=== PATIENT | female | born 1980 | race Caucasian/White ===

== ENCOUNTER 2022-02-28 11:15 | Observation (INO) | payer OTHER, SELFPAY ==
[2022-02-28] VITALS (15 sets, daily range): BP systolic 134–190; BP diastolic 86–115; PULSE 77–124; RESP 16–22; TEMP 36.8–37.3; O2SAT 95–100; BMI 30.5
--- NOTE | 2022-02-28 11:43 | CTR_ITS ---
PROCEDURE INFORMATION: Exam: CTA Chest With Contrast Exam date and time: 02/28/2022 1:15 PM Age: 41 years old Clinical indication: Other: Chest pain; Additional info: Evaluated for vascular pathology-pain to left shoulder TECHNIQUE: Imaging protocol: Computed tomographic angiography of the chest with contrast. 3D rendering (Not supervised by radiologist): MIP and/or 3D reconstructed images were created and reviewed. COMPARISON: CR Chest 1 [place] [id number] 04/28/2018 2:25 AM FINDINGS: Pulmonary arteries: Main pulmonary artery normal in caliber. No evidence of pulmonary embolism to the subsegmental level. Aorta: Unremarkable. No aortic aneurysm. No aortic dissection. Lungs: The lungs are well expanded. No focal consolidation. Airways normal in caliber and patent. Pleural spaces: Unremarkable. No pneumothorax. No pleural effusion. Heart: No cardiomegaly. No coronary artery calcifications. No pericardial effusion. Lymph nodes: Unremarkable. No enlarged lymph nodes. Bones/joints: There is marked edema surrounding the thoracic esophagus from the thoracic inlet to the hiatus. There is apparent circumferential esophageal wall thickening the is difficult to evaluate as the esophagus is relatively collapsed. No discrete fluid collection. No air beyond the esophageal lumen. No acute or aggressive osseous lesion. Soft tissues: Unremarkable. PROCEDURE INFORMATION: Exam: CTA Abdomen and Pelvis Without And With Contrast Exam date and time: 02/28/2022 1:15 PM Age: 41 years old Clinical indication: Other: Chest pain; Additional info: Evaluated for vascular pathology-pain to left shoulder TECHNIQUE: Imaging protocol: Computed tomographic angiography of the abdomen and pelvis without and with contrast. 3D rendering (Not supervised by radiologist): MIP and/or 3D reconstructed images were created by the technologist. Radiation optimization: All CT scans at this facility use at least one of these dose optimization techniques: automated exposure control; mA and/or kV adjustment per patient size (includes targeted exams where dose is matched to clinical indication); or iterative reconstruction. Contrast material: OMNI 350; Contrast volume: 95 ml; Contrast route: INTRAVENOUS (IV); COMPARISON: No relevant prior studies available. RADIATION DOSE METRICS: Total DLP (mGy-cm): 1964.17 FINDINGS: Aorta: No aortic aneurysm. No aortic dissection. Celiac trunk and mesenteric arteries: No occlusion or significant stenosis. Renal arteries: No occlusion or significant stenosis. Incidental note of accessory right lower pole renal artery. Right iliac arteries: No occlusion or significant stenosis. Left iliac arteries: No occlusion or significant stenosis. Liver: No mass. Gallbladder and bile ducts: Bile ducts mildly dilated, likely due to reservoir effect in the setting of cholecystectomy. Pancreas: Unremarkable. No mass. No ductal dilation. Spleen: Unremarkable. No splenomegaly. Adrenal glands: Unremarkable. No mass. 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 No hydronephrosis or visualized stones. No renal mass. Stomach and bowel: Unremarkable. No obstruction. No mucosal thickening. Appendix: No evidence of appendicitis. Intraperitoneal space: Unremarkable. No free air. No significant fluid collection. Lymph nodes: Unremarkable. No enlarged lymph nodes. Urinary bladder: Well distended and normal in appearance. Reproductive: Hysterectomy. Incidental 15 mm involuting left ovarian follicle. Bones/joints: No acute fracture. No dislocation. Lower lumbar degenerative changes. Soft tissues: Unremarkable. CT/CT angio chest abdomen pelvis IMPRESSION: 1. No evidence of pulmonary embolism. 2. Extensive edema surrounding the esophagus, with suspected mild circumferential wall thickening, correlate for esophagitis. Limited evaluation without opacification of the lumen. No focal fluid collection is identified. IMPRESSION: 1. No acute findings within the abdomen or pelvis. 2. No significant stenosis or occlusion.
--- NOTE | 2022-02-28 11:44 | ECG_ITS ---
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 Measurements Intervals [place] Rate: 89 P: 54 UT: 130 QRS: 42 QRSD: 85 T: 71 QT: 364 QTc: 445 Interpretive Statements SINUS RHYTHM Compared to ECG 04/28/2018 02:07:23 No significant changes Electronically Signed On 03-01-2022 19:30:36 CDT by Too Loomis M.D. [id number]
--- NOTE | 2022-02-28 11:47 | W.ED.CHESTPA ---
HPI - Chest Pain General: Chief Complaint: Chest Pain Stated Complaint: Chest Pains Time Seen by Provider: 02/28/22 11:30 Source: patient and other (Friend) Mode of arrival: ambulatory Limitations: no limitations History of Present Illness: This patient presents by private vehicle to our emergency department because of epigastric and lower chest pain. She states that she had a normal day yesterday felt some mild nausea last evening. She states she thinks she slept well but woke with episodes of sharp pain in her lower chest epigastric region which she states seemed to radiate to her left shoulder. She states the pain was episodic and sharp and then would ease off a bit. She states it was not worsened by eating activity etc. She states that she took her usual H2 angel as well as multiple Rolaids as well as a second H2 angel throughout the morning with no relief in her symptoms. Pain is now been present approximately 3-1/2-4 hours. She states that she has urinated normally, had normal bowel movement. She states she felt like throwing up might help her but she has not had any emesis. She does have a history of acid reflux disease but is never experienced any symptoms like these. She has had a prior cholecystectomy as well as multiple orthopedics surgeries for a trauma. These are very remote circa 2007. She has a history of factor V Leyden deficiency discovered several years ago. Did have 1 DVT several years ago. She is not currently taking any DOAC's or other anticoagulants. She has not had any other constitutional symptoms such as cough sore throat fever etc. She states she has no personal history of dyspnea with exertion or chest pain. She does have hypertension and takes lisinopril. She does not use tobacco and rarely drinks alcohol. She has had no blood or melanotic stools. She does have a family history of cardiovascular disease and a younger brother. Her father is living. complaint: chest pain Timing of current episode: episodic and increasing Onset: during rest Pain location: substernal and epigastric Pain radiation: left scapula Severity: moderate Quality: sharp Relieving factors: nothing Exacerbating factors: nothing Associated symptoms: Reports no associated symptoms; Deny dyspnea, fever(s), palpitations, syncope or vomiting Risk Factors: Coronary artery disease risk factors: family history of CAD before age 50 Pulmonary embolism risk factors: clotting disorder Related Data: On Oral Contraceptives: No Review of Systems Const: Denies: fever(s) or chills Eyes: Denies: change in vision ENMT: Denies: throat pain, odynophagia or hoarseness Card: Denies: palpitations, syncope, pre-syncope or dyspnea on exertion Resp: Denies: dyspnea, productive cough, non-productive cough or wheezing GI: Reports: heartburn; Denies: vomiting, hematemesis, dysphagia, change in bowel habits or hematochezia : Denies: flank pain, difficulty voiding, dysuria or urinary frequency Musc: Denies: neck pain, extremity pain or extremity swelling Skin/Breast: Denies: rash or pruritus Neuro: Denies: headache(s), numbness in extremities, weakness in extremities, dizziness, vertigo or Slurred speech present Psych: Denies: anxiety or depression Endo: Denies: polyuria or polydipsia Carlos Alberto/Lymph: Denies: easy bruising or easy bleeding Physical Exam Narrative: EXAM NARRATIVE: Patient is alert and appears to be in some distress intermittently. She is able to answer questions in a goal-directed fashion when she is not having discomfort. Const: COMMON NORMALS: average body habitus and patient oriented x3 NUTRITIONAL APPEARANCE: overweight HENMT: COMMON NORMALS: normocephalic, atraumatic, Normal external nose present and moist oral mucous membranes HEAD & SCALP: normocephalic and atraumatic NOSE: Normal external nose present Eye: COMMON NORMALS: Equal, round and reactive pupils present, EOMs intact bilaterally and no scleral icterus PUPIL: Yes Equal, round and reactive pupils present Neck/C-Spine: COMMON NORMALS: full ROM, no lymphadenopathy, no meningeal signs, no JVD and No carotid bruits Chest: COMMONS NORMALS: normal inspection of the chest and normal palpation of entire chest wall Resp: COMMON NORMALS: normal respiratory effort, No retractions, No use of accessory muscles and clear to auscultation bilaterally AUSCULTATION: clear to auscultation bilaterally Cardio: COMMON NORMALS: no JVD, regular rate, regular rhythm, No murmurs present (Cardio) and Peripheral pulses 2+ throughout JUGULAR VENOUS DISTENTION: no JVD RATE: regular rate RHYTHM: regular rhythm PERIPHERAL PULSES: Peripheral pulses 2+ throughout GI: COMMON NORMALS: Normal to inspection, nondistended, normoactive bowel sounds present, Soft to palpation, non-tender, No hepatosplenomegaly present, no masses and no bruits PALPATION: Yes Soft to palpation and Yes No hepatosplenomegaly present : COMMON NORMALS: Yes no CVA tenderness BLADDER/KIDNEY EXAM: Yes no CVA tenderness Back/Pelvis: COMMON NORMALS: no CVA tenderness, thoracic and lumbar spine normal to inspection, no thoracic nor lumbar tenderness and thoraco-lumbar ROM normal Extremity: COMMON NORMALS: normal to inspection, full ROM, capillary refill normal, no joint enlargement, no calf tenderness and no pedal edema Neuro: COMMON NORMALS: patient oriented x3, moves all extremities, no focal motor deficits and no sensory deficits noted MENINGEAL SIGNS: Yes no meningeal signs CRANIAL NERVES: Yes CN normal except as noted SPEECH: speech normal Psych: COMMON NORMALS: mental status grossly normal Skin: COMMON NORMALS: no rashes or lesions noted and turgor normal GENERAL SKIN EXAM: no rashes or lesions noted and turgor normal Course Reevaluation(s): Reevaluation #1: CT scan is reassuring without any evidence of pulmonary embolus, aortic vessel disease or other concerning vascular issues. She does have a slight elevation in his D-dimer but I suspect this is probably related to her factor V Leyden deficiency given her normal CTA. She also has esophageal edema consistent with esophagitis. We will proceed with symptomatic treatment and follow response. Time: 15:24 Reevaluation #2: We have had limited success with using GI cocktail, nitroglycerin sublingual etc. We will go ahead and proceed with a nicardipine drip. She continues to have discomfort as well as elevation in blood pressure. [place] no evidence at this time of ACS, great vessel disease to include dissection, aneurysm etc. Time: 18:35 Consultations: Consultation #1: I discussed with general surgeon who provides endoscopies support at this facility. Reviewed her current findings and history and he agrees that reasonable choice would be calcium channel angel as well as pain control and he will consult for endoscopy as indicated. Time: 18:33 Consultation #2: Spoke with the hospitalist on-call Dr. Edwards who agreed to admit the patient. Time: 18:41 Vital Signs: Vital signs: Vital Signs Pulse Rate 77 02/28/22 16:13 Respiratory Rate 16 02/28/22 16:58 Blood Pressure 190/112 02/28/22 16:13 Pulse Oximetry 100 02/28/22 16:58 MDM - Chest Pain Medical Decision Making Patient with a history of esophageal reflux with new and unusual symptoms that began early this morning and have continued and eventually she made her way to the emergency department. Because of her symptomatology and concern about possible great vessel disease a extensive work-up was engaged. Her CTA of her chest abdomen pelvis were unremarkable for dissection or other concerning findings or other intra-abdominal pathology. Multiple regimens were attempted to control her symptoms but minimal if any positive affect. 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 Historically calcium channel blockers have been effective in controlling those symptoms and combined with her hypertension we will go ahead and start her on a nicardipine drip. She will be admitted to the ICU and evaluated and further care provided by the hospitalist as well as a general surgeon for endoscopy support. This was all reviewed with the patient and she was agreement with the plan. Lab Data I reviewed the patient's lab results. : 02/28/22 11:30 02/28/22 11:30 Radiology Impressions Chest/Abdomen/Pelvis CTA 02/28/22 11:43 IMPRESSION: 1. No evidence of pulmonary embolism. 2. Extensive edema surrounding the esophagus, with suspected mild circumferential wall thickening, correlate for esophagitis. Limited evaluation without opacification of the lumen. No focal fluid collection is identified. IMPRESSION: 1. No acute findings within the abdomen or pelvis. 2. No significant stenosis or occlusion. Laboratory Results WBC 11.9 10^3/uL (4.0-10.0) H 02/28/22 11:30 RBC 4.45 10^6/uL (4.1-5.3) 02/28/22 11:30 Hgb 13.3 g/dL (11.5-15.3) 02/28/22 11:30 Hct 40.1 % (37.0-47.0) 02/28/22 11:30 MCV 90.1 fl (81-99) 02/28/22 11:30 MCH 29.9 pg (28.0-34.0) 02/28/22 11:30 MCHC 33.2 g/dL (30.0-36.0) 02/28/22 11:30 RDW 12.9 % (12.1-15.1) 02/28/22 11:30 Plt Count 298 10^3/cmm (130-400) 02/28/22 11:30 MPV 10.1 fL (7.4-10.4) 02/28/22 11:30 Neut % (Auto) 72.7 % 02/28/22 11:30 Lymph % (Auto) 19.0 % 02/28/22 11:30 Kimball % (Auto) 6.9 % 02/28/22 11:30 Eos % (Auto) 0.8 % 02/28/22 11:30 Baso % (Auto) 0.3 % 02/28/22 11:30 Neut # (Auto) 8.66 10^3/uL (1.8-7.7) H 02/28/22 11:30 Lymph # (Auto) 2.3 10^3/uL (0.8-4.8) 02/28/22 11:30 Kimball # (Auto) 0.8 10^3/uL (0.2-0.9) 02/28/22 11:30 Eos # (Auto) 0.1 10^3/uL (0.0-0.8) 02/28/22 11:30 Baso # (Auto) 0.0 10^3/uL (0.0-0.1) 02/28/22 11:30 Nucleated RBC % (auto) 0 % 02/28/22 11:30 Nucleated RBCs # 0.0 /100WBC 02/28/22 11:30 D-Dimer 1.30 ug/mIFEU (0-0.59) H 02/28/22 12:20 Sodium 135 mmol/L (136-145) L 02/28/22 11:30 Potassium 4.2 mmol/L (3.5-5.1) 02/28/22 11:30 Chloride 102 mmol/L (98-107) 02/28/22 11:30 Carbon Dioxide 24 mmol/L (22-29) 02/28/22 11:30 Anion Gap 13.2 (5-19) 02/28/22 11:30 BUN 13 mg/dL (6-20) 02/28/22 11:30 Creatinine 0.6 mg/dL (0.5-0.9) 02/28/22 11:30 GFR Calculation 109.6 mL/min (90-130) 02/28/22 11:30 Glucose 101 mg/dL (65-115) 02/28/22 11:30 Calculated Osmolality 280 mOsm/kg (285-295) L 02/28/22 11:30 Calcium 8.5 mg/dL (8.5-10.5) 02/28/22 11:30 Total Bilirubin 0.2 mg/dL (0.15-1.2) 02/28/22 11:30 AST 16 U/L (0-32) 02/28/22 11:30 ALT 15 U/L (0-33) 02/28/22 11:30 Alkaline Phosphatase 63 IU/L (35-105) 02/28/22 11:30 Troponin T Baseline 6 ng/L (0-10) 02/28/22 11:30 Troponin T 120 Minute 6.00 ng/L (0-10) 02/28/22 13:44 Delta Troponin T 0 ABS# (0-10) 02/28/22 13:44 Troponin T Hi Sens 6Hr 6.00 ng/L (0-10) 02/28/22 17:50 Troponin T Hi Sens 6Hr Delta Not Reportable 02/28/22 17:50 Total Protein 7.0 g/dL (6.6-8.7) 02/28/22 11:30 Albumin 4.0 g/dL (3.5-5.2) 02/28/22 11:30 Globulin 3.0 g/dL (1.3-4.6) 02/28/22 11:30 Lipase 24 U/L (13-60) 02/28/22 11:30 EKG Data EKG 1: I personally reviewed and interpreted this EKG as follows: EKG interpretation time: 11:29 Interpretation: EKG reveals normal sinus rhythm with a ventricular rate of 92 bpm. MD interval is normal, QRS duration is normal, QTc intervals normal. [place] is within normal range. No acute ST-T wave changes noted. Unremarkable EKG. Discharge Plan Discharge Patient Disposition: Admitted As Inpatient Clinical Impression: Nutcracker esophagus Condition: Stable Coding Level of Care Code ED Law Office Receptionist for Chg Fwd Exam Comprehensive
[2022-02-28 11:55] LABS: Basophils % 0.3 %; Eosinophils # 0.1 10^3/uL (0.0-0.8); Eosinophils % 0.8 %; Hematocrit 40.1 % (37.0-47.0); Hemoglobin 13.3 g/dL (11.5-15.3); Lymphocytes # 2.3 10^3/uL (0.8-4.8); Mean Corpuscular HGB Conc 33.2 g/dL (30.0-36.0); Mean Corpuscular Hemoglobin 29.9 pg (28.0-34.0); Mean Corpuscular Volume 90.1 fl (81-99); Mean Platelet Volume 10.1 fL (7.4-10.4); Monocytes # 0.8 10^3/uL (0.2-0.9); Monocytes % 6.9 %; Neutrophils # 8.66 10^3/uL (1.8-7.7); Neutrophils % 72.7 %; Nucleated Red Blood Cells % 0 %; Platelet Count 298 10^3/cmm (130-400); Red Blood Count 4.45 10^6/uL (4.1-5.3); Red Cell Distribution Width 12.9 % (12.1-15.1); White Blood Count 11.9 10^3/uL (4.0-10.0)
[2022-02-28 12:10] LABS: Alanine Aminotransferase 15 U/L (0-33); Alkaline Phosphatase 63 IU/L (35-105); Anion Gap 13.2 (5-19); Aspartate Amino Transferase 16 U/L (0-32); Blood Urea Nitrogen 13 mg/dL (6-20); Calcium 8.5 mg/dL (8.5-10.5); Carbon Dioxide 24 mmol/L (22-29); Chloride 102 mmol/L (98-107); Glomerular Filtration Rate 109.6 mL/min (90-130); Glucose 101 mg/dL (65-115); Lipase 24 U/L (13-60); Osmolality Calculated 280 mOsm/kg (285-295); Potassium 4.2 mmol/L (3.5-5.1); Sodium 135 mmol/L (136-145); Total Bilirubin 0.2 mg/dL (0.15-1.2)
[2022-02-28 12:11] LABS: Troponin(5th) Baseline 6 ng/L (0-10)
[2022-02-28] MEDS: HYDROmorphone 1 mg/mL INJ 1 mL IVP ×3 (12:14→16:58)
[2022-02-28] MEDS: ondansetron 2 mg/ML SDV 2 mL 4 MG IVP ×3 (12:14→21:21)
[2022-02-28] MEDS: iohexol 350 mg/mL 100 mL Btl IV (13:15)
[2022-02-28 14:37] LABS: Troponin 5 2HR Delta 0 ABS# (0-10)
[2022-02-28] MEDS: lidocaine 2% viscous 15 ML, aluminum-mag hydrox-simethicon 30 ML, sucralfate oral liq 1 GM PO (15:26)
[2022-02-28] MEDS: nitroglycerin 0.4 mg sublingual Tablet SUBLINGUAL ×3 (16:09→16:59)
--- NOTE | 2022-02-28 17:44 | ECG_ITS ---
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 Measurements Intervals [place] Rate: 92 P: 17 MN: 140 QRS: 19 QRSD: 81 T: 49 QT: 344 QTc: 426 Interpretive Statements SINUS RHYTHM Compared to ECG 04/28/2018 02:07:23 No significant changes Electronically Signed On 03-01-2022 19:34:58 CDT by Too Loomis M.D. [id number]
[2022-02-28] MEDS: nicardipine 20 MG/200 ML PREMIX 50 MG IV (18:51)
--- NOTE | 2022-02-28 19:04 | PC.NURSE ---
Assumed pt care from Agustín MCCOY
--- NOTE | 2022-02-28 19:14 | PM.HP ---
Providers/Chief Complaint Primary Care Provider: Melissa Servin APN Chief Complaint: Chest Pains History of Present Illness Annmarie Hernandez is a 41 year old female without significant past medical history other than hypothyroidism and hypertension presented today with chief complaint of heartburn and diffuse esophageal asthma pains. Patient is stating that she has never been diagnosed with sclerodactyly or nutcracker esophagus however she does experience GERD intermittently. Patient is stating that she had EGD when she was 14 years old which showed GERD related changes. She is camping these days, last night she start experiencing some discomfort in her mid epigastric region and this morning when she had a hamburger her symptoms started getting worse, she describes her symptoms as extensive spastic pains in mid epigastric region, she would not call it chest pain however she is endorsing pain in her left shoulder. She is denying radiation of pain in between shoulder blades. She has experienced multiple episodes of emesis. No fever or diarrhea. She is denying discoloration of her hands in cold, skin rash, telangiectasias. Patient is stating that she is a double swallower, whenever she eats solid or liquid she has to swallow twice to make sure she does not choke. She has been noticing some choking on liquid diet and regurgitation of food as well. In the ER she was diagnosed with hypertensive urgency she was started on Cardene drip at the time of evaluation blood pressure was 137/72 mmHg, I will discontinue Cardene drip and put her on Nitropaste admitted to [facility] Dr. Schmidt notified Review of Systems Const: Denies: fever(s) Eyes: Denies: change in vision ENMT: Reports: throat pain and odynophagia Card: Denies: chest pain Resp: Denies: dyspnea GI: Reports: abdominal pain, nausea, vomiting and heartburn; Denies: early satiety : Denies: flank pain Musc: Denies: neck pain Skin/Breast: Denies: rash Neuro: Denies: headache(s) Psych: Denies: anxiety Endo: Denies: polyuria Carlos Alberto/Lymph: Denies: easy bruising All/Imm: Denies: urticaria Medications/Allergies Home Medications Medication Instructions Recorded Confirmed Last Taken Type levothyroxine 175 mcg tablet 175 mcg PO DAILY 02/28/22 02/28/22 02/28/22 History (Euthyrox) lisinopril 10 mg tablet 10 mg PO BID 02/28/22 02/28/22 02/28/22 History Allergies Allergy/AdvReac Type Severity Reaction Status Date / Time No Known Allergies Allergy Unverified 02/28/22 12:03 PFSH Acute PFSH: Medical History Depression Factor 5 Leiden mutation, heterozygous HTN (hypertension) Hypothyroid Palpitation Surgical History H/O knee surgery H/O lumpectomy S/P cholecystectomy Status post tonsillectomy Family History Other Family history non-contributory Social History Smoking and tobacco status: never smoked Alcohol intake: current Alcohol intake frequency: holidays/special occasions only Vitals/I&O/Wt Last Vital Signs Pulse 77 02/28/22 16:13 Resp 16 02/28/22 16:58 BP 190/112 02/28/22 16:13 Pulse Ox 100 02/28/22 16:58 Weight last 48 hrs Weight 80.739 kg Physical Exam Narrative: Patient was in distress when entered the room Blood pressure 137/92 mmHg She is euvolemic Has bucket in front of her S1, S2 sinus rhythm Abdomen soft No signs of peritonitis no guarding or rigidity No signs of edema of legs EOMI, PERRLA Nonfocal neuro exam No signs of sclerodactyly or telangiectasia Data : 02/28/22 11:30 02/28/22 11:30 A&P Assessment and plan (1) Nutcracker esophagus: Status: Acute (2) Hypertensive urgency: Status: Acute Plan Epigastric pain related to esophageal spasm We will keep patient n.p.o. Would use cardiac and a angel and nitrates EGD tomorrow by Dr. Schmidt I am not sure if we will be able to do barium swallow over the weekend Patient does not have any signs of telangiectasia or sclerodactyly She does understand that she might need manometric studies for diagnostic purposes or Botox injections if her symptoms are not resolving She is willing to stay here and see Dr. Schmidt in the morning Hypertensive urgency: Turn off Cardene drip, put her on Nitropaste half inch will also add amlodipine If needed would use IV labetalol for as needed use if systolic blood pressure above 180 or diastolic above 100mmhg History of hypothyroidism: Check TSH She does not have typical limited sclerosis presentation, hemoglobin is stable, less likely to be Whitefield-Praneeth syndrome 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
[2022-02-28 19:55] LABS: Thyroid Stimulating Hormone 0.01 uIU/mL (0.27-4.20)
[2022-02-28] MEDS: nitroglycerin 1 gm/inch oint Pkt 0.5 INCH TOPICAL (20:13)
[2022-02-28] MEDS: HYDROmorphone 1 mg/mL INJ 1 mL 0.4 MG IVP (21:21)
[2022-02-28] MEDS: amlodipine 10 mg Tablet PO (21:22)
[2022-02-28] MEDS: LORazepam 2 mg/mL INJ 1 mL 0.5 MG IVP (22:36)
[2022-03-01] VITALS (7 sets, daily range): BP systolic 131–176; BP diastolic 72–117; PULSE 18–94; RESP 15–88; TEMP 36.6–37.1; O2SAT 96–100
[2022-03-01 04:57] LABS: Basophils % 0.2 %; Eosinophils # 0.1 10^3/uL (0.0-0.8); Eosinophils % 0.5 %; Hematocrit 39.9 % (37.0-47.0); Hemoglobin 13.5 g/dL (11.5-15.3); Lymphocytes # 1.8 10^3/uL (0.8-4.8); Lymphocytes % 15.7 %; Mean Corpuscular HGB Conc 33.8 g/dL (30.0-36.0); Mean Corpuscular Hemoglobin 30.1 pg (28.0-34.0); Mean Corpuscular Volume 88.9 fl (81-99); Mean Platelet Volume 9.9 fL (7.4-10.4); Monocytes # 0.7 10^3/uL (0.2-0.9); Monocytes % 6.1 %; Neutrophils # 8.79 10^3/uL (1.8-7.7); Neutrophils % 77.2 %; Nucleated Red Blood Cells % 0 %; Platelet Count 274 10^3/cmm (130-400); Red Blood Count 4.49 10^6/uL (4.1-5.3); Red Cell Distribution Width 13.1 % (12.1-15.1); White Blood Count 11.4 10^3/uL (4.0-10.0)
[2022-03-01 05:11] LABS: Anion Gap 14.2 (5-19); Blood Urea Nitrogen 12 mg/dL (6-20); Calcium 8.1 mg/dL (8.5-10.5); Carbon Dioxide 25 mmol/L (22-29); Chloride 105 mmol/L (98-107); Glomerular Filtration Rate 109.6 mL/min (90-130); Glucose 119 mg/dL (65-115); Osmolality Calculated 291 mOsm/kg (285-295); Potassium 4.2 mmol/L (3.5-5.1); Sodium 140 mmol/L (136-145)
--- NOTE | 2022-03-01 07:37 | PC.NURSE ---
spoke with MD notifying himm pt anxious and tearful, c/o continued and increasing spasms of esophagus. new orders received.
[2022-03-01] MEDS: ondansetron 2 mg/ML SDV 2 mL 4 MG IVP (07:47)
--- NOTE | 2022-03-01 08:29 | P.ANESASSM_ITS ---
Pre-Anesthetic Assessment Height/Weight: Height 1.63 m Weight 80.739 kg Temp Pulse Resp BP Pulse Ox 98.2 F 88 18 136/72 96 03/01/22 06:59 03/01/22 06:59 03/01/22 06:59 03/01/22 06:59 03/01/22 06:59 Preop Diagnosis: Esophageal spasm EGD Familial anesthetic complications: None Was Beta Bakari taken within 24 hours: N/A Was Clonidine taken within 24 hours: N/A Social No alcohol and No tobacco Exam alert, oriented x 3, clear to auscultation bilaterally and regular rate & rhythm Airway Submandibular: within normal limits Cervical ROM: within normal limits Mallampati: Class I Dentition: full History/ROS No significant complaints Pulmonary None reported CTA C/A/P 02/28/22 CT/CT angio chest abdomen pelvis IMPRESSION: 1. No evidence of pulmonary embolism. 2. Extensive edema surrounding the esophagus, with suspected mild circumferential wall thickening, correlate for esophagitis. Limited evaluation without opacification of the lumen. No focal fluid collection is identified. ? ? IMPRESSION: 1. No acute findings within the abdomen or pelvis. 2. No significant stenosis or occlusion. ? CV/HEM Hypertension Hypertensive urgency Factor 5 Leiden mutation EKG 02/28/22 Interpretive Statements SINUS RHYTHM Compared to ECG 04/28/2018 02:07:23 No significant changes [id number] Troponin WNL. None reported Hepatic None reported GI None reported Metabolic Thyroid Disease [facility] [place] None reported Neuropsych Depression Anesthetic Plan ASA status: 2 Anesthesia: Anesthesia Evaluation and General Other: I discussed with the patient risks, goals, and benefits of MAC and general anesthesia. We discussed spectrum of MAC anesthesia including conversion to general as well as possibility of recall of intraoperative stimuli including discomfort/pain. Patient agrees to proceed with MAC. Risk of > 500 ml blood loss (7ml/kg in children): No Medications/Allergies Home Medications Medication Instructions Recorded Confirmed Last Taken Type levothyroxine 175 mcg tablet 175 mcg PO DAILY 02/28/22 02/28/22 02/28/22 History (Euthyrox) lisinopril 10 mg tablet 10 mg PO BID 02/28/22 02/28/22 02/28/22 History Allergies Allergy/AdvReac Type Severity Reaction Status Date / Time No Known Allergies Allergy Unverified 02/28/22 12:03 Current Medications Generic Name Dose Route Start Last Admin Trade Name Freq PRN Reason Stop Dose Admin Amlodipine Besylate 10 mg 02/28/22 21:02 02/28/22 21:22 Amlodipine 10 Mg Tablet PO 10 mg DAILY DB Administration Hydromorphone HCl 0.4 mg 02/28/22 21:02 02/28/22 21:21 Hydromorphone 1 Mg/Ml Inj 1 Ml IVP 0.4 mg Q4H PRN Administration pain Nitroglycerin 0.4 mg 02/28/22 15:51 02/28/22 16:59 Nitroglycerin 0.4 Mg Sublingual Tablet SUBLINGUAL 1 tab Q5M PRN Administration CHEST PAIN Nitroglycerin 0.5 inch 02/28/22 20:00 03/01/22 08:08 Nitroglycerin 1 Gm/Inch Oint Pkt TOPICAL Not Given Q6H DB Ondansetron HCl 4 mg 02/28/22 21:02 03/01/22 07:47 Ondansetron 2 Mg/Ml Sdv 2 Ml IVP 4 mg Q6H PRN Administration NAUSEA AND VOMITING PFSH Anesthesia Medical History Depression Factor 5 Leiden mutation, heterozygous HTN (hypertension) Hypothyroid Palpitation Surgical History H/O knee surgery H/O lumpectomy S/P cholecystectomy Status post tonsillectomy Family History Other Family history non-contributory Social History Smoking and tobacco status: never smoked Alcohol intake: current Alcohol intake frequency: holidays/special occasions only Data Anesthesia : 03/01/22 04:40 03/01/22 04:40 Short CBC 04/23/22 04/24/22 Range/Units 11:30 04:40 WBC 11.9 H 11.4 H (4.0-10.0) 10^3/uL Hgb 13.3 13.5 (11.5-15.3) g/dL Hct 40.1 39.9 (37.0-47.0) % MCV 90.1 88.9 (81-99) fl Plt Count 298 274 (130-400) 10^3/cmm Neut % (Auto) 72.7 77.2 % Neut # (Auto) 8.66 H 8.79 H (1.8-7.7) 10^3/uL BMP 02/28/22 03/01/22 11:30 04:40 Sodium 135 L 140 Potassium 4.2 4.2 Chloride 102 105 Carbon Dioxide 24 25 BUN 13 12 Creatinine 0.6 0.6 Glucose 101 119 H Calcium 8.5 8.1 L Cardiac Enzymes 02/28/22 02/28/22 02/28/22 Range/Units 11:30 13:44 17:50 Troponin T Baseline 6 (0-10) ng/L Troponin T 120 Minute 6.00 (0-10) ng/L Delta Troponin T 0 (0-10) ABS# Troponin T Hi Sens 6Hr 6.00 (0-10) ng/L Troponin T Hi Sens 6Hr Delta Not Reportable Liver Function 02/28/22 Range/Units 11:30 Total Bilirubin 0.2 (0.15-1.2) mg/dL AST 16 (0-32) U/L ALT 15 (0-33) U/L Alkaline Phosphatase 63 (35-105) IU/L Albumin 4.0 (3.5-5.2) g/dL Coags 02/28/22 12:20 D-Dimer 1.30 H Cardiac Studies: No Data to Display
[2022-03-01 09:06] LABS: Erythrocyte Sedimentation Rate 23 mm/hr (0-15)
[2022-03-01] MEDS: levothyroxine 150 mcg Tablet PO (09:18)
[2022-03-01] MEDS: pantoprazole 40 mg SDV IVP (09:18)
[2022-03-01] MEDS: amlodipine 10 mg Tablet PO (09:18)
--- NOTE | 2022-03-01 09:19 | P.CONIM_ITS ---
Providers/Reason For Consult Consulting Physician/Specialty*: General Surgery Dr. Schmidt Reason for Consult*: chest pain Attending Physician: Clint Esteves MD Primary Care Provider: Melissa Servin APN History of Present Illness History of Present Illness Annmarie Hernandez is a 41 year old female who presented to the ER yesterday with severe chest and abdominal pain and had cardiac and vascular work up which was negative. She has occasional GERD and takes OTC which controls her symptoms. She had denies nausea and vomiting in the past but yesterday had significant vomiting. She had significant improvement with hyoscymine last night. No hematmesis or melena. Patient had similar episode when she was 14 and had an EGD but at that time was she was going through a lot of stress with scholarship applications. Review of Systems General: Reports: 10 or more systems reviewed and unremarkable except in HPI and below Medications/Allergies Home Medications Medication Instructions Recorded Confirmed Last Taken Type levothyroxine 175 mcg tablet 175 mcg PO DAILY 02/28/22 02/28/22 02/28/22 History (Euthyrox) lisinopril 10 mg tablet 10 mg PO BID 02/28/22 02/28/22 02/28/22 History Allergies Allergy/AdvReac Type Severity Reaction Status Date / Time No Known Allergies Allergy Unverified 02/28/22 12:03 Current Medications Generic Name Dose Route Start Last Admin Trade Name Freq PRN Reason Stop Dose Admin Amlodipine Besylate 10 mg 02/28/22 21:02 03/01/22 09:18 Amlodipine 10 Mg Tablet PO 10 mg DAILY DB Administration Hydromorphone HCl 0.4 mg 02/28/22 21:02 02/28/22 21:21 Hydromorphone 1 Mg/Ml Inj 1 Ml IVP 0.4 mg Q4H PRN Administration pain Levothyroxine Sodium 150 mcg 03/01/22 07:45 03/01/22 09:18 Levothyroxine 150 Mcg Tablet PO 150 mcg QAM DB Administration Nitroglycerin 0.4 mg 02/28/22 15:51 02/28/22 16:59 Nitroglycerin 0.4 Mg Sublingual Tablet SUBLINGUAL 1 tab Q5M PRN Administration CHEST PAIN Nitroglycerin 0.5 inch 02/28/22 20:00 03/01/22 08:08 Nitroglycerin 1 Gm/Inch Oint Pkt TOPICAL Not Given Q6H DB Ondansetron HCl 4 mg 02/28/22 21:02 03/01/22 07:47 Ondansetron 2 Mg/Ml Sdv 2 Ml IVP 4 mg Q6H PRN Administration NAUSEA AND VOMITING Pantoprazole Sodium 40 mg 03/01/22 09:00 03/01/22 09:18 Pantoprazole 40 Mg Sdv IVP 40 mg BID DB Administration PFSH Acute PFSH: Medical History (Updated 03/01/22 @ 09:39 by Jamil Schmidt MD) Depression Factor 5 Leiden mutation, heterozygous HTN (hypertension) Hypothyroid Surgical History H/O knee surgery H/O lumpectomy S/P cholecystectomy Status post tonsillectomy Family History Other Family history non-contributory Social History Smoking and tobacco status: never smoked Alcohol intake: current Alcohol intake frequency: holidays/special occasions only Vitals/I&O/Wt Last Vital Signs Temp 98.2 F 03/01/22 06:59 Pulse 88 03/01/22 06:59 Resp 18 03/01/22 06:59 BP 136/72 03/01/22 06:59 Pulse Ox 96 03/01/22 06:59 02/28/22 03/01/22 03/01/22 22:59 06:59 14:59 Intake Total 82.500 / 82.500 Balance 82.500 / 82.500 Weight last 48 hrs Weight 178 lb Physical Exam Narrative: HEENT: Normocephalic Eye: Sclera /conjunctiva normal Abdomen: Soft to palpation, NT, ND Neurological: Oriented to place person and time Skin: Intact, no lesions appreciated on gross exam Data : 03/01/22 04:40 03/01/22 04:40 A&P Assessment and plan (1) Chest pain: 41 year old female who presents with chest pain. Cardiac and vascular work up was negative. Patient denies significant GERD and concern is for possible esophageal spasm and may need further work up with manometry. Plan for EGD under MAC today to rule out any other pathology Status: Acute Consult Attestations Medical Necessity Statement: As per attending physician Coding Level of Care Code Acute [employer] Marketing Analyst for Chg Fwd Diagnoses Chest pain R07.9
[2022-03-01] MEDS: hyoscyamine ODT 0.125 mg Tablet PO ×2 (09:26→12:29)
[2022-03-01 09:28] LABS: C Reactive Protein 8.2 mg/L (0.0-4.9)
[2022-03-01 09:35] LABS: Procalcitonin 0.07 ng/mL (0-0.5); T3 Free 2.5 PG/ML (2.0-4.4)
--- NOTE | 2022-03-01 09:38 | PM.PN ---
Subjective Subjective: Patient was seen this morning, she tells me that she has a little bit of a rash on both arms, she is not sure how she developed it maybe it was what she received last night, it is itchy, she tells that she continues to have spasms only that really helpless hyoscyamine Vitals/I&O/Wt Last Vital Signs Temp 98.2 F 03/01/22 06:59 Pulse 88 03/01/22 06:59 Resp 18 03/01/22 06:59 BP 136/72 03/01/22 06:59 Pulse Ox 96 03/01/22 06:59 02/28/22 03/01/22 03/01/22 22:59 06:59 14:59 Intake Total 82.500 / 82.500 Balance 82.500 / 82.500 Weight last 48 hrs Weight 80.739 kg Physical Exam Const: COMMON NORMALS: no acute distress and patient oriented x3 Resp: COMMON NORMALS: normal respiratory effort, No retractions, No use of accessory muscles and clear to auscultation bilaterally AUSCULTATION: clear to auscultation bilaterally Cardio: COMMON NORMALS: regular rate, regular rhythm, S1 normal heart sound present and S2 normal heart sound present RATE: regular rate RHYTHM: regular rhythm HEART SOUNDS: S1 normal heart sound present and S2 normal heart sound present GI: COMMON NORMALS: Normal to inspection, nondistended, normoactive bowel sounds present, Soft to palpation and non-tender PALPATION: Yes Soft to palpation Extremity: COMMON NORMALS: no pedal edema NARRATIVE EXTREMITY EXAM: Bilateral hands, macular rash, erythematous looking like wheals and hives Neuro: COMMON NORMALS: patient oriented x3 Psych: COMMON NORMALS: mental status grossly normal Data : 03/01/22 04:40 03/01/22 04:40 A&P Assessment and plan (1) Nutcracker esophagus: Status: Acute (2) Hypertensive urgency: Status: Acute Plan Epigastric pain related to esophageal spasm We will keep patient n.p.o. Not responding to nitro, or calcium channel angel Has responded to hyoscyamine EGD tomorrow by Dr. Schmidt I am not sure if we will be able to do barium swallow over the weekend Patient does not have any signs of telangiectasia or sclerodactyly She does understand that she might need manometric studies for diagnostic purposes or Botox injections if her symptoms are not resolving Will have EGD today, potential discharge today Hypertensive urgency: Remove Nitropaste, will also add amlodipine If needed would use IV labetalol for as needed use if systolic blood pressure above 180 or diastolic above 100mmhg History of hypothyroidism: Depressed TSH, decrease levothyroxine to 150 Allergic rash, start prednisone She does not have typical limited sclerosis presentation, hemoglobin is stable, less likely to be [place]-Praneeth syndrome 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
[2022-03-01] MEDS: sodium chloride 0.9% 1,000 ML 30 ML IV (09:45)
--- NOTE | 2022-03-01 11:03 | PM.DCS ---
Discharge Providers Date of Admission: 02/28/22 21:02 Date of Discharge: March 01, 2022 Attending Provider at Admission: Brandt Tang Attending Provider at Discharge: Clint Esteves MD Primary Care Provider: Melissa Servin APN Diagnoses at Discharge Discharge Diagnosis (1) Chest pain: Status: Acute Reason for Visit Reason for Visit: Chest Pains Hospital Course Hospital Course This is a 41-year-old female, with a past medical history of hypertension, hypothyroidism who presents to clinic due to complaints of esophageal spasm, elevated blood pressure For her esophageal spasms, clinically improving with hyoscyamine, status post EGD with findings of gastritis. I will discharge her on diltiazem 60 every 6 hours for esophageal spasms, hyoscyamine as needed, and Protonix and Carafate for her gastritis. Hypertension, discharged on diltiazem, hold lisinopril She also had an allergic reaction, on both arms, discharged on prednisone burst Physical Exam Const: COMMON NORMALS: no acute distress and patient oriented x3 Resp: COMMON NORMALS: normal respiratory effort, No retractions, No use of accessory muscles and clear to auscultation bilaterally AUSCULTATION: clear to auscultation bilaterally Cardio: COMMON NORMALS: regular rate, regular rhythm, S1 normal heart sound present and S2 normal heart sound present RATE: regular rate RHYTHM: regular rhythm HEART SOUNDS: S1 normal heart sound present and S2 normal heart sound present GI: COMMON NORMALS: Normal to inspection, nondistended, normoactive bowel sounds present, Soft to palpation and non-tender PALPATION: Yes Soft to palpation Extremity: COMMON NORMALS: no pedal edema Neuro: COMMON NORMALS: patient oriented x3 Psych: COMMON NORMALS: mental status grossly normal Discharge Data Studies Completed and Pending Completed Studies During Hospitalization Category Date Time Status CTA chest abdomen pelvis [CT angio chest abdomen pelvis Cat Scan 02/28/22 11:43 Completed ] Urgent Pending at discharge Category Date Time Status Modified barium swallow [FL barium swallow modifd [id number] Exams 02/28/22 21:02 Ordered ] Routine AIXA Profile Custom [[facility] AIXA Profile] Routine Lab 02/28/22 21:02 Received T3 Total Stat Lab 03/01/22 04:40 Received Pathology: Surgical [PTH] Routine Pth 03/01/22 10:07 Ordered Radiology Impressions Chest/Abdomen/Pelvis CTA 02/28/22 11:43 IMPRESSION: 1. No evidence of pulmonary embolism. 2. Extensive edema surrounding the esophagus, with suspected mild circumferential wall thickening, correlate for esophagitis. Limited evaluation without opacification of the lumen. No focal fluid collection is identified. IMPRESSION: 1. No acute findings within the abdomen or pelvis. 2. No significant stenosis or occlusion. Laboratory Results WBC 11.4 10^3/uL (4.0-10.0) H 03/01/22 04:40 RBC 4.49 10^6/uL (4.1-5.3) 03/01/22 04:40 Hgb 13.5 g/dL (11.5-15.3) 03/01/22 04:40 Hct 39.9 % (37.0-47.0) 03/01/22 04:40 MCV 88.9 fl (81-99) 03/01/22 04:40 MCH 30.1 pg (28.0-34.0) 03/01/22 04:40 MCHC 33.8 g/dL (30.0-36.0) 03/01/22 04:40 RDW 13.1 % (12.1-15.1) 03/01/22 04:40 Plt Count 274 10^3/cmm (130-400) 03/01/22 04:40 MPV 9.9 fL (7.4-10.4) 03/01/22 04:40 Neut % (Auto) 77.2 % 03/01/22 04:40 Lymph % (Auto) 15.7 % 03/01/22 04:40 [place] % (Auto) 6.1 % 03/01/22 04:40 Eos % (Auto) 0.5 % 03/01/22 04:40 Baso % (Auto) 0.2 % 03/01/22 04:40 Neut # (Auto) 8.79 10^3/uL (1.8-7.7) H 03/01/22 04:40 Lymph # (Auto) 1.8 10^3/uL (0.8-4.8) 03/01/22 04:40 [place] # (Auto) 0.7 10^3/uL (0.2-0.9) 03/01/22 04:40 Eos # (Auto) 0.1 10^3/uL (0.0-0.8) 03/01/22 04:40 Baso # (Auto) 0.0 10^3/uL (0.0-0.1) 03/01/22 04:40 Nucleated RBC % (auto) 0 % 03/01/22 04:40 Nucleated RBCs # 0.0 /100WBC 03/01/22 04:40 ESR 23 mm/hr (0-15) H 03/01/22 04:40 D-Dimer 1.30 ug/mIFEU (0-0.59) H 02/28/22 12:20 Sodium 140 mmol/L (136-145) 03/01/22 04:40 Potassium 4.2 mmol/L (3.5-5.1) 03/01/22 04:40 Chloride 105 mmol/L (98-107) 03/01/22 04:40 Carbon Dioxide 25 mmol/L (22-29) 03/01/22 04:40 Anion Gap 14.2 (5-19) 03/01/22 04:40 BUN 12 mg/dL (6-20) 03/01/22 04:40 Creatinine 0.6 mg/dL (0.5-0.9) 03/01/22 04:40 GFR Calculation 109.6 mL/min (90-130) 03/01/22 04:40 Glucose 119 mg/dL (65-115) H 03/01/22 04:40 Calculated Osmolality 291 mOsm/kg (285-295) 03/01/22 04:40 Calcium 8.1 mg/dL (8.5-10.5) L 03/01/22 04:40 Total Bilirubin 0.2 mg/dL (0.15-1.2) 02/28/22 11:30 AST 16 U/L (0-32) 02/28/22 11:30 ALT 15 U/L (0-33) 02/28/22 11:30 Alkaline Phosphatase 63 IU/L (35-105) 02/28/22 11:30 Troponin T Baseline 6 ng/L (0-10) 02/28/22 11:30 Troponin T 120 Minute 6.00 ng/L (0-10) 02/28/22 13:44 Delta Troponin T 0 ABS# (0-10) 02/28/22 13:44 Troponin T Hi Sens 6Hr 6.00 ng/L (0-10) 02/28/22 17:50 Troponin T Hi Sens 6Hr Delta Not Reportable 02/28/22 17:50 C-Reactive Protein 8.2 mg/L (0.0-4.9) H 03/01/22 04:40 Total Protein 7.0 g/dL (6.6-8.7) 02/28/22 11:30 Albumin 4.0 g/dL (3.5-5.2) 02/28/22 11:30 Globulin 3.0 g/dL (1.3-4.6) 02/28/22 11:30 Lipase 24 U/L (13-60) 02/28/22 11:30 Procalcitonin 0.07 ng/mL (0-0.5) 03/01/22 04:40 TSH 0.01 uIU/mL (0.27-4.20) L 02/28/22 17:50 Free T4 1.20 ng/dL (0.82-1.77) 03/01/22 04:40 Free T3 2.5 PG/ML (2.0-4.4) 03/01/22 04:40 Vitals Last Vital Signs Temp 97.9 F 03/01/22 10:56 Pulse 18 L 03/01/22 10:56 Resp 88 H 03/01/22 10:56 BP 132/90 03/01/22 10:56 Pulse Ox 100 03/01/22 10:56 Discharge Plan Discharge Patient Disposition: Home Condition: Stable Prescriptions: New prednisone 20 mg Tablet 40 mg PO Q24H 5 Days Qty: 10 0RF diltiazem HCl 60 mg Tablet 60 mg PO Q6H 30 Days Qty: 120 0RF pantoprazole [Protonix] 40 mg tablet,delayed release (DR/EC) 40 mg PO BID 30 Days Qty: 60 0RF sucralfate [Carafate] 1 gram tablet 1 g PO BID 28 Days Qty: 56 0RF hyoscyamine sulfate [Anaspaz] 0.125 mg Tablet,Disintegrating 0.125 mg PO Q4H PRN (Reason: Congestion) 7 Days 0RF Changed Euthyrox 175 mcg tablet 150 mcg PO DAILY Qty: 0 0RF Discontinued lisinopril 10 mg tablet 10 mg PO BID 0RF Discharge Orders: Discharge Order (Routine); Ordered 03/01/22 Ordered By: Clint Esteves Referrals: Melissa Servin APN [Primary Care Provider] - 1-3 days (Please call [facility] on Wednesday to schedule a hospital followup to be seen in 1 to 3 days. Thank you) Discharge Diet: Regular Discharge Activity: Resume usual activity Patient Instructions: GI Discharge Instructions, Opioid Safety Activity Restrictions/Additional Instructions: - Please follow-up with your primary care provider this week, for consideration for referral to GI in [place] for consideration of esophageal manometry Discharge Attestations Time Spent in Discharge Care*: less than 30 min Quality Metrics Clinical Quality Measures [ No reported AMI, CVA or VTE this stay] Coding Level of Care Code Acute Chg [facility] note Diagnoses Chest pain R07.9
--- NOTE | 2022-03-01 11:18 | ANE.PACU2 ---
Inpatient post-anesthesia follow up: Airway intact: Yes Vital signs: Temperature 97.9 F Pulse Rate 18 Respiratory Rate 88 Blood Pressure 132/90 Pulse Oximetry 100 Oxygen Delivery Me thod Room Air Oxygen Flow Rate Fraction of Inspir ed Oxygen Hydration adequate: Yes Nausea and vomiting: No Pain level: 1 Mental status: Baseline
[2022-03-01] MEDS: dilTIAZem 60 mg Tablet PO (11:50)
[2022-03-01] MEDS: predniSONE 20 mg Tablet 40 MG PO (11:50)
[2022-03-02 14:09] LABS: T3 Total 96 ng/dL (76-181)
[2022-03-02 17:13] LABS: Anti-Double Strand DNA AB <1 IU/mL; Jo-1 Antibody <1.0 NEG AI (<1.0 NEG); SM/RNP Antibodies <1.0 NEG AI (<1.0 NEG); SS-B/LA IGG <1.0 NEG AI (<1.0 NEG); Scleroderma Ab(Scl-70) Ab <1.0 NEG AI (<1.0 NEG); Ss-A/Ro Igg <1.0 NEG AI (<1.0 NEG)
== END 2022-03-01 15:30 | disposition home or self-care (01) ==
LOC: ER 18:45 → ICU 19:29 → MEDSURG 03-01 01:41
PROVIDERS: Internal Medicine; Surgery; Admitting Provider Internal Medicine; Emergency Provider Emergency Medicine; PCP Nurse Practitioner Family; Visit Provider Family Medicine
PROC: 0DJ08ZZ Inspection of Upper Intestinal Tract, Via Natural or Artificial Opening Endoscopic (ICD-10-PCS; CPT 43235; principal; 2022-03-01 10:00)
DX: K22.4 Dyskinesia of esophagus (principal); K29.50 Unspecified chronic gastritis without bleeding; K29.80 Duodenitis without bleeding; I16.0 Hypertensive urgency; F32.9 Major depressive disorder, single episode, unspecified; I10 Essential (primary) hypertension; E03.9 Hypothyroidism, unspecified
CPT/HCPCS: 36415; 43239; 71275; 74174; 80048; 80053; 83690; 84145; 84439; 84443; 84480; 84481; 84484; 85025; 85378; 85651; 86140; 86225; 86235; 88305; 88342; 93005; 96372; 96374; 96375; 96376; 99285; C9113; G0378; J1170; J1200; J1980; J2060; J2405; J2704; J3010; J7030; J7512; Q9967